=== PATIENT | male | born 1930 | race Caucasian/White ===

== ENCOUNTER 2017-07-11 10:37 | Emergency (ER) | payer MEDICARE, OTHER ==
[2016-10-18 13:08] VITALS: BMI 27.7
[~2017-07-11 10:37] MED LIST: ASCORBIC ACID500 MG PO; BAYER CHEWABLE81 MG PO; CARDIZEM LA360 MG PO; CITRACAL + D E1 EACH; CLARITIN 10 MG10 MG PO; CO Q-1030 MG PO; CORDARONE200 MG PO; FEXOFENADINE HC60 MG PO; FLOMAX0.4 MG PO; LASIX20 MG PO; METOPROLOL TART25 MG PO; PLAVIX75 MG PO; PRILOSEC20 MG PO; SINEMET 25-1001 EACH PO; UROCIT-K10 MEQ; VYTORIN 10-20 M1 TAB PO; ZOCOR20 MG PO; ZYLOPRIM100 MG PO
[2017-07-11 11:39] LABS: BASOPHILS 0.2 % (0-2); EOSINOPHILS 0.7 % (0-7); HEMATOCRIT 38.1 % (42.0-54.0); HEMOGLOBIN 13.2 g/dL (13.5-17.5); IMMATURE GRANULOCYTES 0.4 % (0-5); LYMPHOCYTES 19.3 % (15-50); MCH 32.2 pg (26.0-34.0); MCHC 34.6 g/dL (31.0-37.0); MCV 92.9 fL (80.0-100.0); MEAN PLATELET VOLUME 8.8 fL (7.4-10.4); MONOCYTES 8.2 % (2-11); NEUTROPHILS 71.2 % (40-80); PLATELET COUNT 210 10x3/uL (130-400); RDW 14.2 % (11.5-14.5); WBC 8.3 10x3/uL (4.8-10.8)
[2017-07-11 11:54] LABS: ALBUMIN 3.1 g/dL (3.4-5.0); ANION GAP 11.6 mmol/L (8-16); BILIRUBIN - TOTAL 0.55 mg/dL (0.2-1.3); CALCIUM 8.8 mg/dL (8.5-10.1); CARBON DIOXIDE 27.6 mmol/L (21.0-32.0); CREATININE - SERUM 1.7 mg/dL (0.6-1.3); POTASSIUM - SERUM 4.2 mmol/L (3.5-5.1)
[2017-07-11 13:19] LABS: UDS - AMPHET POSITIVE QUAL (NEGATIVE); UDS - BARB NEGATIVE QUAL (NEGATIVE); UDS - BENZO NEGATIVE QUAL (NEGATIVE); UDS - COCAINE NEGATIVE QUAL (NEGATIVE); UDS - METH NEGATIVE QUAL (NEGATIVE); UDS - OPIATE NEGATIVE QUAL (NEGATIVE); UDS - PCP NEGATIVE QUAL (NEGATIVE); UDS - THC NEGATIVE QUAL (NEGATIVE)
[2017-07-11 13:31] LABS: APPEARANCE CLOUDY (CLEAR); BILIRUBIN NEGATIVE (NEGATIVE); COLOR YELLOW (YELLOW); GLUCOSE NEGATIVE (NEGATIVE); KETONE NEGATIVE (NEGATIVE); LEUKOCYTE ESTERASE 2+ (NEGATIVE); NITRITE NEGATIVE (NEGATIVE); PROTEIN TRACE mg/dL (NEGATIVE); UROBILINOGEN NORMAL (NORMAL)
[2017-07-11 13:32] LABS: BACTERIA MODERATE /hpf (NONE SEEN); EPITHELIAL CELLS 0-5 /hpf (0-5); MUCUS <1+ /lpf (NONE SEEN); RED CELLS - URINE 0-5 /hpf (0-5)
== END 2017-07-11 15:05 | disposition home or self-care (01) ==
LOC: D.ER 10:37
PROVIDERS: Emergency Medicine
DX: R56.9 Unspecified convulsions (principal); N39.0 Urinary tract infection, site not specified; I10 Essential (primary) hypertension

== ENCOUNTER → 2017-08-02 12:51 | Outpatient (CLI) | payer MEDICARE, OTHER ==
[2016-10-18 13:08] VITALS: BMI 27.7
== END | disposition home or self-care (01) ==
LOC: D.CN 12:51
DX: R55 Syncope and collapse (principal); G20 Parkinson's disease

== ENCOUNTER 2018-08-29 11:22 | Emergency (ER) | payer MEDICARE, OTHER ==
[~2018-08-29] VITALS: Ht 170.2 cm; Wt 84.1 kg
[2018-08-29 11:24] VITALS: Ht 170.2 cm; Wt 84.1 kg
[2018-08-29] MEDS ORDERED: TYLENOL W/CODEI1 TAB PO (15:06)
[2018-08-29 15:15] VITALS: BP 158/81
== END 2018-08-29 15:16 | disposition home or self-care (01) ==
LOC: D.ER 11:22
DX: S80.01XA Contusion of right knee, initial encounter (principal); W18.30XA Fall on same level, unspecified, initial encounter; Y93.89 Activity, other specified; Y92.019 Unspecified place in single-family (private) house as the place of occurrence of the external cause; M25.551 Pain in right hip; G20 Parkinson's disease; I10 Essential (primary) hypertension; J44.9 Chronic obstructive pulmonary disease, unspecified; I25.10 Atherosclerotic heart disease of native coronary artery without angina pectoris; N42.9 Disorder of prostate, unspecified

== ENCOUNTER 2018-11-22 12:45 | Inpatient (IN) | payer MEDICARE, OTHER ==
[~2018-11-22] VITALS: Ht 170.2 cm; Wt 65.7 kg
[~2018-11-22 12:45] MED LIST changes: -SINEMET 25-1001 EACH PO; +Sinemet 25-100 PO; +TYLENOL W/CODEI1 TAB PO
[2018-11-22 13:49] LABS: APPEARANCE CLEAR (CLEAR); BILIRUBIN NEGATIVE (NEGATIVE); COLOR YELLOW (YELLOW); GLUCOSE NEGATIVE (NEGATIVE); KETONE NEGATIVE (NEGATIVE); NITRITE NEGATIVE (NEGATIVE); PROTEIN TRACE mg/dL (NEGATIVE); UROBILINOGEN NORMAL (NORMAL)
[2018-11-22 13:49] LABS: BASOPHILS 0.2 % (0-2); EOSINOPHILS 0.8 % (0-7); HEMATOCRIT 32.5 % (42.0-54.0); HEMOGLOBIN 10.7 g/dL (13.5-17.5); IMMATURE GRANULOCYTES 0.4 % (0-5); LYMPHOCYTES 14.6 % (15-50); MCH 30.7 pg (26.0-34.0); MCHC 32.9 g/dL (31.0-37.0); MCV 93.1 fL (80.0-100.0); MEAN PLATELET VOLUME 8.4 fL (7.4-10.4); MONOCYTES 9.7 % (2-11); NEUTROPHILS 74.3 % (40-80); RBC 3.49 10x6/uL (4.20-6.10); RDW 14.4 % (11.5-14.5); WBC 10.1 10x3/uL (4.8-10.8)
[2018-11-22 13:50] LABS: AMORPHOUS SEDIMENT <1+ /lpf (NONE SEEN); BACTERIA MANY /hpf (NONE SEEN); EPITHELIAL CELLS OCC /hpf (0-5); MUCUS <1+ /lpf (NONE SEEN); WHITE CELLS - URINE 0-5 /hpf (0-5)
[2018-11-22 14:03] LABS: ALBUMIN 2.3 g/dL (3.4-5.0); ANION GAP 13.1 mmol/L (8-16); BILIRUBIN - TOTAL 0.45 mg/dL (0.2-1.3); CALCIUM 8.4 mg/dL (8.5-10.1); CREATININE - SERUM 1.8 mg/dL (0.6-1.3); POTASSIUM - SERUM 5.1 mmol/L (3.5-5.1)
[2018-11-22 14:07] LABS: PLATELET COUNT 310 10x3/uL (130-400)
[2018-11-22 14:12] LABS: THYROID STIMULATING HORMONE 2.21 uIU/mL (0.36-3.74)
--- NOTE | 2018-11-22 15:04 | NUR ---
ROCEPHIN INFUSION STOPPED AT 1500
[2018-11-22 15:18] VITALS: BP 129/84
[2018-11-22 15:44] VITALS: BP 120/75
[2018-11-22 16:48] LABS: % SATURATION 12 % (15-55); IRON 27 ug/dl (35-150); TOTAL IRON BIND CAPACITY 221 ug/dl (260-445); UNSAT IRON BIND CAPACITY 194 ug/dl (150-375)
--- NOTE | 2018-11-22 16:50 | NUR ---
ZITHROMAX INFUSION STOPPED AT 1650
--- NOTE | 2018-11-22 17:28 | NUR ---
RECIEVED PT FROM EER. ANNEMARIE AT BEDSIDE. PT STATES THEY TAKE NORTHERA, WILL ADD TO MEDREC. 100MG TID.
[2018-11-22 17:55] VITALS: BP 147/62
[2018-11-22 18:00] VITALS: BP 161/79; BMI 28.2
--- NOTE | 2018-11-22 18:11 | NUR ---
PT LYING IN BED. CHANGED TO BRIEFS. TELEMETRY APPLIED, FAMILY ASSISTING AT BEDSIDE.
--- NOTE | 2018-11-22 19:10 | NUR ---
ALERT/AWAKE SOME PONCA OF [place] NOTED. IV IN RT FA C/D/I. TELEMETRY SHOWS 73 SR WITH 1ST DEGREE BLOCK. DENIES PAIN. REQUESTED MORE ICE WATER. ORIENTED TO CALL LIGHT FOR ANY NEEDS.
--- NOTE | 2018-11-22 19:30 | NUR ---
REQUESTED BEDPAN FOR BM, BUT WITHOUT ANY RESULTS. NO SKIN BREAKDOWN NOTED ON HIS BUTTOCKS. DOES WEAR ADULT DIAPER.
--- NOTE | 2018-11-23 00:10 | NUR ---
WOKE UP TO GIVE SOLUMEDROL 40MG IV. ALOT OF CRACKLES NOTED BUT CLEARED AFTER HE COUGH.
[2018-11-23 04:50] LABS: BASOPHILS 0 % (0-2); EOSINOPHILS 0 % (0-7); HEMATOCRIT 32.5 % (42.0-54.0); HEMOGLOBIN 10.7 g/dL (13.5-17.5); IMMATURE GRANULOCYTES 0.3 % (0-5); LYMPHOCYTES 5.8 % (15-50); MCH 30.7 pg (26.0-34.0); MCHC 32.9 g/dL (31.0-37.0); MCV 93.1 fL (80.0-100.0); MEAN PLATELET VOLUME 8.6 fL (7.4-10.4); MONOCYTES 1.5 % (2-11); NEUTROPHILS 92.4 % (40-80); PLATELET COUNT 348 10x3/uL (130-400); RBC 3.49 10x6/uL (4.20-6.10); RDW 14.5 % (11.5-14.5); WBC 8.8 10x3/uL (4.8-10.8)
[2018-11-23 04:58] VITALS: BP 140/81
[2018-11-23 05:19] LABS: ALBUMIN 2.3 g/dL (3.4-5.0); ANION GAP 15.5 mmol/L (8-16); BILIRUBIN - TOTAL 0.26 mg/dL (0.2-1.3); CALCIUM 8.6 mg/dL (8.5-10.1); CARBON DIOXIDE 23.8 mmol/L (21.0-32.0); CREATININE - SERUM 1.7 mg/dL (0.6-1.3); MAGNESIUM - SERUM 2.7 mg/dL (1.8-2.4); POTASSIUM - SERUM 5.3 mmol/L (3.5-5.1); PROTEIN - SERUM 6.7 g/dL (6.4-8.2)
--- NOTE | 2018-11-23 05:45 | NUR ---
ADMIN SCHED MED WITH SIPS OF WATER SWALLOWING WITHOUT DIFFICULTY.
--- NOTE | 2018-11-23 08:07 | NUR ---
AT BEDSIDE. REQUESTED HE BE BATHED SOMETIME TODAY. CLEANED PT UP, SMALL BOWEL MOVEMENT AND URNIATION. REPOSITIONED IN BED, CHANGED LINNEN AND PULLUP. PLACED IN YELLOW GOWN. CL IN REACH. ASSISTING WITH FEEDING, ADMINISTERED HOME MEDICAITONS (NOT YET APPROVED HERE, NEEDED FOR [place]) CARBIDOPA-LEVODOPA (25/100, 2 TABS TID) AND NORTHERA(100, 2 CAP TID).
[2018-11-23 08:59] VITALS: BP 177/91
--- NOTE | 2018-11-23 11:09 | NUR ---
CCO NOTE: AAOX4. PT EXTREMELY OUZINKIE. L KNEE SWOLLEN FROM PREVIOUS FALL. NO S/S OF ACUTE DISTRESS. CL IN PLACE.
--- NOTE | 2018-11-23 11:27 | NUR ---
CALLED INTO PTS ROOM BY FAMILY. PT APPEARS TO BE IN ACUTE DISTRESS PSYCHOLOGY. UPSET, STATES HE'S CRAZY AND MAY OR MAY NOT BE IN PAIN. HE SEEMS VERY CONFUSED BUT STATES HES FEELING BETTER NOW. CHECKED PT, NO S/S OF A PHYSIOLOGICAL CAUSE. CALMED PT DOWN THE REST THE WAY. FAMILY STTATES THEY'RE CONCNERNED WITH INCREASED CONFUSION. STATES THAT HE ONLY HAS BOUTS OF CONFUSION INTERMITTENTLY AND THAT HE CAN GO LONG 6 MONTHS WITHOUT INCIDENT BUT WILL THEN HAVE THE ACUTE EPISODES. WILL REPORT TO DR. OVALLE IN REACH. FAMILY AT BEDSIDE. PT SITTING IN RECLINER BY BEDSIDE.
[2018-11-23 13:05] VITALS: BP 153/73
[2018-11-23] MEDS ORDERED: MULTI-DAY VITAM1 TAB PO (14:40)
[2018-11-23] MEDS ORDERED: NORTHERA PO (14:44)
[2018-11-23 16:09] VITALS: BP 132/84
--- NOTE | 2018-11-23 19:10 | NUR ---
ALERT/AWAKE WEARING BIPAP MASK. DENIES ANY NEEDS OR DISCOMFORTS. IV IN R FA WITH NS INFUSING AT 75ML/HR. POINTED TO CALL LIGHT AND STATED "YES" WHEN I QUESTION IF HE KNEW HOW TO USE IT. REQUESTED URINAL TO VOID.
[2018-11-23 19:45] VITALS: BP 142/68
--- NOTE | 2018-11-23 21:42 | NUR ---
ADMIN SCHED MEDS WITH SIPS OF WATER SWALLOWING WITHOUT DIFFICULTY. EMPTIED URINAL. NO OTHER NEEDS VOICED. HAS CALL LIGHT IN REACH.
[2018-11-23 23:41] VITALS: BP 151/76
--- NOTE | 2018-11-24 00:42 | NUR ---
REQUESTED HIS BIPAP MASK OFF AND TOOK A FEW SIPS OF WATER. NO OTHER NEEDS VOICED.
[2018-11-24 03:49] VITALS: BP 174/95
[2018-11-24 05:38] LABS: BASOPHILS 0 % (0-2); EOSINOPHILS 0 % (0-7); HEMATOCRIT 30.6 % (42.0-54.0); HEMOGLOBIN 10.5 g/dL (13.5-17.5); IMMATURE GRANULOCYTES 0.3 % (0-5); LYMPHOCYTES 2.4 % (15-50); MCH 31.5 pg (26.0-34.0); MCHC 34.3 g/dL (31.0-37.0); MCV 91.9 fL (80.0-100.0); MEAN PLATELET VOLUME 8.6 fL (7.4-10.4); NEUTROPHILS 95.3 % (40-80); PLATELET COUNT 357 10x3/uL (130-400); RBC 3.33 10x6/uL (4.20-6.10); RDW 14.5 % (11.5-14.5)
[2018-11-24 06:00] LABS: ALBUMIN 2.1 g/dL (3.4-5.0); ANION GAP 14.6 mmol/L (8-16); BILIRUBIN - TOTAL 0.2 mg/dL (0.2-1.3); CALCIUM 8.3 mg/dL (8.5-10.1); CARBON DIOXIDE 23.2 mmol/L (21.0-32.0); CREATININE - SERUM 1.7 mg/dL (0.6-1.3); MAGNESIUM - SERUM 2.3 mg/dL (1.8-2.4); POTASSIUM - SERUM 4.8 mmol/L (3.5-5.1); PROTEIN - SERUM 6.4 g/dL (6.4-8.2)
[2018-11-24 06:53] LABS: WBC 17.3 10x3/uL (4.8-10.8)
--- NOTE | 2018-11-24 07:33 | NUR ---
AM ROUNDS- PT RESTING COMFORTABLY IN BED, PT A/O X4, REPS EVEN AND NONLABORED ON RA. RT FA IV INFUSING NS AT 75CC/HR. WHEEZING HEARD IN ALL LOBES. PT DENIES ANY NEEDS AT THIS TIME. CALL LIGHT IN REACH, NO FAMILY AT BEDSIDE,NAD NOTED,W ILL CONTINUE PLAN OF CARE.
[2018-11-24 08:10] VITALS: BP 168/93
--- NOTE | 2018-11-24 08:32 | NUR ---
AM MEDS GIVEN AT THIS TIME. AT BEDSIDE STATES PT TAKES 2TABS OF THE [place] AND IT NEEDS TO BE GIVEN AT 0730,1100,1530. INFOMRED PT'S THAT I WOULD HAVE THAT CHANGED. PT DENIES ANY NEEDS AT THIS TIME. CALL LIGHT IN REACH, BEDSIDE RAILS X2, NAD NOTED,W ILL CONTINUE TO MONITOR.
[2018-11-24 11:45] VITALS: BP 161/86
[2018-11-24 12:20] VITALS: BMI 27.7
--- NOTE | 2018-11-24 13:56 | NUR ---
IVPB ZITRHOMAX HUNG AT THIS TIME. ALSO PROVIDE PT WITH ICE CREAM, PT DENIES ANY OTHER NEEDS AT THIS TIME. CALL LIGHT IN REACH, AT BEDSIDE, PHOEBE YENNY, WILL CONTINUE TO MONITOR.
--- NOTE | 2018-11-24 15:40 | NUR ---
Rehab NOte- Acute Inpatient prescreen order received. The patient is a good inpatient rehab candidate when medically stable and ready for discharge from the acute hosptial. He is currently still having a medical work up. Will follow at this time and plan to admit to [facility] Acute Inpatient Rehab if he is in agreeance prior to being discharged home. Thank you for this referral! Mile Dorado RN Clincial Liaison, [facility] Rehab
[2018-11-24 16:46] VITALS: BP 165/88
--- NOTE | 2018-11-24 17:30 | NUR ---
INFORMED PT THAT WE NEED A URINE SAMPLE. CUP AND URINAL TAKEN TO ROOM. PT AND AT BEDSIDE BOTH VERBALIZED UNDERSTANDING, IVPB ROCEPHIN HUNG AT THIS TIME. PT DENIES ANY NEEDS AT THIS TIME. AT BEDSIDE, CALL LIGHT IN REACH.
--- NOTE | 2018-11-24 19:45 | NUR ---
PT RESTING IN BED WITH EYES OPEN. ALERT AND ORIENTED X 3. DENIES ACUTE DISCOMFORT AT THIS TIME. NO NEEDS VOICED. PT IS KENAITZE. IV TO RFA NOTED TO BE INFILTRATED. IV DC'D WITH CATH INTACT. BANDAID APPLIED TO SITE. I ATTEMPTED TO RESITE IV X 2 WITHOUT SUCCESS. IV RESITED BY JOHNATHAN BEYER RN IN LFA WITH 22 G IV USING STERILE TECHNIQUE. SITE SECURED WITH TAPE AND OPSITE. IV RESTARTED. TELEMETRY UNIT IS ON AND INTACT. FAMILY MEMBER IS AT BEDSIDE. SR'S ARE UP X 2 IN BED. CALL LIGHT AND BEDSIDE TABLE ARE WITHIN EASY REACH.
[2018-11-24 20:00] VITALS: BP 164/87
--- NOTE | 2018-11-24 23:45 | NUR ---
PT IS RESTING QUIETLY IN BED WITH EYES CLOSED. RESPS ARE EVEN AND UNLABORED. NO ACUTE DISTRESS NOTED.
[2018-11-24 23:50] LABS: APPEARANCE CLEAR (CLEAR); BILIRUBIN NEGATIVE (NEGATIVE); COLOR YELLOW (YELLOW); GLUCOSE NEGATIVE (NEGATIVE); KETONE NEGATIVE (NEGATIVE); NITRITE NEGATIVE (NEGATIVE); PROTEIN TRACE mg/dL (NEGATIVE); UROBILINOGEN NORMAL (NORMAL)
[2018-11-24 23:51] LABS: BACTERIA MODERATE /hpf (NONE SEEN); EPITHELIAL CELLS 0-5 /hpf (0-5); GRANULAR CAST 0-5 /lpf (NONE SEEN); RED CELLS - URINE 0-5 /hpf (0-5); WHITE CELLS - URINE 0-5 /hpf (0-5)
[2018-11-25] VITALS: BP 152/84
--- NOTE | 2018-11-25 01:19 | NUR ---
RESTING IN BED WITH EYES CLOSED.
--- NOTE | 2018-11-25 03:19 | NUR ---
LYING IN BED, RESPIRATIONS EVEN AND UNLABORED. CALL LIGHT IN REACH, WILL CONTINUE WITH PLAN OF CARE.
[2018-11-25 04:00] VITALS: BP 167/87
--- NOTE | 2018-11-25 05:40 | NUR ---
PT RESTING IN BED WITH EYES OPEN. USED URINAL. 400CC DARK YELLOW URINE NOTED. NO FURTHER NEEDS VOICED.
--- NOTE | 2018-11-25 05:41 | NUR ---
PT REFUSED TO STAND FOR DAILY WEIGHT. HE STATES IT TAKES TO MUCH EFFORT TO TRY, AND HE WOULD NOT BE ABLE TO STAND STILL IT.
[2018-11-25 06:44] LABS: BASOPHILS 0.1 % (0-2); EOSINOPHILS 0 % (0-7); HEMATOCRIT 30.5 % (42.0-54.0); HEMOGLOBIN 9.9 g/dL (13.5-17.5); IMMATURE GRANULOCYTES 0.6 % (0-5); LYMPHOCYTES 2.4 % (15-50); MCH 30.2 pg (26.0-34.0); MCHC 32.5 g/dL (31.0-37.0); MEAN PLATELET VOLUME 8.6 fL (7.4-10.4); MONOCYTES 2.1 % (2-11); NEUTROPHILS 94.8 % (40-80); PLATELET COUNT 353 10x3/uL (130-400); RBC 3.28 10x6/uL (4.20-6.10); RDW 14.8 % (11.5-14.5)
--- NOTE | 2018-11-25 07:14 | NUR ---
SINEMET GIVEN AT THIS TIME. PT RESTING COMFORTABLY IN BED, RESP EVEN AND NONLABORED ON RA, WHEEZING HEARD ON ALL LOBES. LT FA IV INFUSING NS AT 75CC/HR. PT DENIES ANY NEEDS AT THIS TIME. CALL LIGHT IN REACH, BEDSIDE RAILS X2, NAD NOTED, WILL CONTINUE PLAN OF CARE.
[2018-11-25 07:34] LABS: ALBUMIN 1.9 g/dL (3.4-5.0); ANION GAP 13.9 mmol/L (8-16); BILIRUBIN - TOTAL 0.32 mg/dL (0.2-1.3); CALCIUM 7.5 mg/dL (8.5-10.1); CARBON DIOXIDE 22.5 mmol/L (21.0-32.0); CREATININE - SERUM 1.5 mg/dL (0.6-1.3); POTASSIUM - SERUM 4.4 mmol/L (3.5-5.1); PROTEIN - SERUM 5.8 g/dL (6.4-8.2)
--- NOTE | 2018-11-25 08:31 | NUR ---
PT TO XRAY AT THIS TIME.
[2018-11-25 08:45] VITALS: BP 154/78
[2018-11-25 09:17] LABS: FOLATE (FOLIC ACID) - SERUM >20.0 ng/mL (>3.0)
--- NOTE | 2018-11-25 09:31 | NUR ---
PT TRANSFERED BACK TO ROOM, AM MEDS GIVEN AT THIS TIME. PT DENIES ANY NEEDS AT THIS TIME. CALL LIGHT IN REACH, FAMILY AT BEDSIDE, NAD NOTED,W ILL CONTINUE TO MONITOR.
--- NOTE | 2018-11-25 09:40 | MORECARE ---
CASE MANAGEMENT DISCHARGE SUMMARY PATIENT: JUNIOR Maryan HANKS UNIT: [id number] ADM DATE: 11/22/18 AGE: 87 : 31 SEX: M ROOM/BED: D.2103 AUTHOR: ROSALINO AVILA PHYSICIAN: REFERRING PHYSICIAN: DANGELO MEADOWS MD DATE OF SERVICE: 11/25/18 Discharge Plan Patient Name: JUNIOR LATONYA [facility] [facility] 1930 Planned Disposition: Anticipated Discharge Date: Discharge Date: Expected LOS: Initial Reviewer: [email or web address] Initial Review Date: 11/22/2018 Generated: 11/25/18 10:40 am Comments DCP- Discharge Planning Updated by [id number]: April Mullins on 11/25/18 8:[address] Patient Name: JUNIOR Maryan HANKS Admission Status: ER Accout number: [id number] Admission Date: 11-22-2018 : 1930 Admission Diagnosis: Attending: DANGELO MEADOWS Current LOS: 3 Anticipated DC Date: Planned Disposition: Primary Insurance: MEDICARE A & B Discharge Planning Comments: CM FAXED AND CALLED [facility] IN PT REHAB TODAY. WAITING ON DETERMINATION. PATIENT WOULD LIKE TO VISIT WITH PATIENT'S DOCTOR TODAY. Harbormaster: April Mullins External Providers [facility] Next Contact Date: Service Request Date: Service Type: Resolution: Reviewer: Comments: Patient Name: JUNIOR LATONYA Page [phone] at 0940 All edits/amendments must be made on the electronic document DICTATION DATE: 11/25/18938 RESIDENTIAL ROOFER HELPER: DM 11/25/18938 RPT#: [id number] DC DATE: STATUS: ADM IN [facility] [address] [place] [address] END OF REPORT
[2018-11-25 12:13] VITALS: BP 146/60
--- NOTE | 2018-11-25 13:02 | NUR ---
PT RESTING COMFORTABLY IN BED, NO CHANGES FROM PREVIOUS ASSESSMENT. PT DENIES ANT NEEDS AT THIS TIME CALL LIGHT IN REACH, AT BEDSIDE, NAD NOTED, WILL CONTINUE TO MONITOR.
[2018-11-25 16:12] VITALS: BP 149/77
--- NOTE | 2018-11-25 19:15 | NUR ---
RESUME CARE. PT LAYING IN BED A&O NO C/O PAIN OR DISTRESS AT THIS TIME DAUGHTER @ BEDSIDE CALL LIGHT IN REACH WILL CONT TO MONITOR
[2018-11-25 20:00] VITALS: BP 167/88
[2018-11-26] VITALS: BP 165/88
[2018-11-26 04:00] VITALS: BP 160/78
--- NOTE | 2018-11-26 05:43 | NUR ---
I CONCUR WITH MARKETING SERVICES MANAGER ASSESSMENT.
[2018-11-26 06:05] LABS: BASOPHILS 0.1 % (0-2); EOSINOPHILS 0.1 % (0-7); HEMATOCRIT 29.7 % (42.0-54.0); HEMOGLOBIN 9.8 g/dL (13.5-17.5); MCH 30.2 pg (26.0-34.0); MCV 91.4 fL (80.0-100.0); MEAN PLATELET VOLUME 8.7 fL (7.4-10.4); MONOCYTES 7.3 % (2-11); NEUTROPHILS 85.5 % (40-80); PLATELET COUNT 344 10x3/uL (130-400); RBC 3.25 10x6/uL (4.20-6.10); RDW 14.8 % (11.5-14.5); WBC 18.4 10x3/uL (4.8-10.8)
[2018-11-26 06:17] LABS: ANION GAP 12.7 mmol/L (8-16); BILIRUBIN - TOTAL 0.31 mg/dL (0.2-1.3); CALCIUM 8.1 mg/dL (8.5-10.1); CARBON DIOXIDE 23.8 mmol/L (21.0-32.0); CREATININE - SERUM 1.6 mg/dL (0.6-1.3); MAGNESIUM - SERUM 2.2 mg/dL (1.8-2.4); POTASSIUM - SERUM 4.5 mmol/L (3.5-5.1); PROTEIN - SERUM 5.6 g/dL (6.4-8.2)
--- NOTE | 2018-11-26 08:00 | NUR ---
RECIEVED BEDSIDE REPORT.AM ROUNDS COMPLETED. PT VSS, AA0 X3, DYSPNEA ON EXERTION. ASSIST PT TO USE THE BATHROOM THIS AM. PT HAS BM THIS AM. SPOUSE @BEDSIDE. PT DENIES NEEDS FOR PAIN AT TIME. WILL CONTINUE POC. CL IN REACH BED IN LOW. WILL CTM.
[2018-11-26 08:15] VITALS: BP 156/81
[2018-11-26 11:14] VITALS: BP 144/74
--- NOTE | 2018-11-26 11:51 | MORECARE ---
CASE MANAGEMENT DISCHARGE SUMMARY PATIENT: JUNIOR Maryan HANKS UNIT: [id number] ADM DATE: 11/22/18 AGE: 87 : 31 SEX: M ROOM/BED: D.2103 AUTHOR: ROSALINO AVILA PHYSICIAN: REFERRING PHYSICIAN: DANGELO MEADOWS MD DATE OF SERVICE: 11/26/18 Discharge Plan Patient Name: JUNIOR LATONYA [facility] [facility] 1930 Planned Disposition: Inpatient Rehab Anticipated Discharge Date: 11/27/18 Discharge Date: Expected LOS: 5 Initial Reviewer: [email or web address] Initial Review Date: 11/22/2018 Generated: 11/26/18 12:51 pm Comments DCP- Discharge Planning Updated by [email or web address]: April Mullins on 11/25/18 8:[address] Patient Name: JUNIOR Maryan HANKS Admission Status: ER Accout number: [id number] Admission Date: 11-22-2018 : 1930 Admission Diagnosis: Attending: DANGELO MEADOWS Current LOS: 3 Anticipated DC Date: Planned Disposition: Primary Insurance: MEDICARE A & B Discharge Planning Comments: CM FAXED AND CALLED [facility] IN PT REHAB TODAY. WAITING ON DETERMINATION. PATIENT WOULD LIKE TO VISIT WITH PATIENT'S DOCTOR TODAY. Counter Stitcher: April Polanco DP export: 11/25/18 8:40 a Patient Name: JUNIOR LATONYA Page [phone] at 1151 All edits/amendments must be made on the electronic document DICTATION DATE: 11/26/18 1151 BURRER HAND: JOSEPH 11/26/18 1151 RPT#: [id number] DC DATE: STATUS: ADM IN [facility] [address] [place] [address] END OF REPORT
--- NOTE | 2018-11-26 12:00 | MORECARE ---
CASE MANAGEMENT DISCHARGE SUMMARY PATIENT: JUNIOR Maryan HANKS UNIT: [id number] ADM DATE: 11/22/18 AGE: 87 : 31 SEX: M ROOM/BED: D.2103 AUTHOR: AUSTINDOC PHYSICIAN: REFERRING PHYSICIAN: DANGELO MEADOWS MD DATE OF SERVICE: 11/26/18 Discharge Plan Patient Name: JUNIOR LATONYA Facility: [facility]:[place] : 1930 Planned Disposition: Inpatient Rehab Anticipated Discharge Date: 11/27/18 Discharge Date: Expected LOS: 5 Initial Reviewer: [email or web address] Initial Review Date: 11/24/2018 Generated: 11/26/18 12:59 pm Comments DCP- Discharge Planning Updated by [email or web address]: pAril Mullins on 11/25/18 8:[address] Patient Name: JUNIOR Maryan HANKS Admission Status: ER Accout number: [id number] Admission Date: 11-22-2018 : 1930 Admission Diagnosis: Attending: DANGELO MEADOWS Current LOS: 3 Anticipated DC Date: Planned Disposition: Primary Insurance: MEDICARE A & B Discharge Planning Comments: CM FAXED AND CALLED [facility] IN PT REHAB TODAY. WAITING ON DETERMINATION. PATIENT WOULD LIKE TO VISIT WITH PATIENT'S DOCTOR TODAY. Relationship Assoc: April Mullins DCPIA - Discharge Planning Initial Assessment Updated by [email or web address]: Tyree Sinclair on 11/26/18 11:56 am * Is the patient Alert and Oriented? Yes * How many steps to enter\exit or inside your home? RAMP * PCP DR. LUI * Pharmacy [facility] * Preadmission Environment Home with Family * ADLs Independent * Equipment Bedside Commode CPAP Hospital Bed Walker * Other Equipment ELECTRIC WHEELCHAIR HAS BEEN ORDERED PREVIOUS TO HOSPITAL STAY. [facility] - MEDICAL EQUIPMENT PROVIDER PREFERENCE * List name and contact numbers for known caregivers / representatives who currently or will assist patient after discharge: JOSUE HANKS, SPOUSE, * Verbal permission to speak to the caregivers and representatives has been obtained from the patient. Yes * Community resources currently utilized Private Duty Care * Please name any agencies selected above. [facility], PRIVATE AIDE SERVICES, APPROXIMATELY 29 HOURS PER WEEK * Additional services required to return to the preadmission environment? Yes * Can the patient safely return to the preadmission environment? Yes * Has this patient been hospitalized within the prior 30 days at any hospital? No Coverage Notice Reviewer: [email or web address] Socorro Sinclair Notice Issued Date-Time: 11/24/2018 16:35 Notice Type: IM Discharge Notice Notice Delivered To: Patient Relationship to Patient: Fresh Foods Clerk Name: Delivery Method: HAND - Hand Delivered Marialuisa Days: Prior Verbal Notification: Recipient Understood Notice: Yes Recipient Signature: Yes Med Rec Note Co-signed by Attending: Coverage Notice Comment: Last DP export: 11/26/18 10:51 a Patient Name: JUNIOR LATONYA Page [phone] at 1200 All edits/amendments must be made on the electronic document DICTATION DATE: 11/26/181158 METEOROLOGICAL TECHNICIAN: JOSEPH 11/26/18 1159 RPT#: [id number] DC DATE: STATUS: ADM IN [facility] [address] [place] [address] END OF REPORT
--- NOTE | 2018-11-26 12:06 | MORECARE ---
CASE MANAGEMENT DISCHARGE SUMMARY PATIENT: JUNIOR Maryan HANKS UNIT: [id number] ADM DATE: 11/22/18 AGE: 87 : 31 SEX: M ROOM/BED: D.2103 AUTHOR: AUSTINDOC PHYSICIAN: REFERRING PHYSICIAN: DANGELO MEADOWS MD DATE OF SERVICE: 11/26/18 Discharge Plan Patient Name: JUNIOR LATONYA Facility: [facility]:[place] : 1930 Planned Disposition: Inpatient Rehab Anticipated Discharge Date: 11/27/18 Discharge Date: Expected LOS: 5 Initial Reviewer: [email or web address] Initial Review Date: 11/24/2018 Generated: 11/26/18 1:06 pm Comments DCP- Discharge Planning Updated by [email or web address]: Tyree Sinclair on 11/26/18 11:[address] Patient Name: JUNIOR Maryan HANKS Encounter No: [id number] : 1930 Primary Insurance: MEDICARE A & B Anticipated DC Date: 11-27-2018 Planned Disposition: Inpatient Rehab External Planned Provider: [facility] DCP follow-up note: LATE ENTRY FROM 11-24-18 AT APPROXIMATELY 1630 HOURS: CM RECEIVED ORDER FOR INPATIENT REHAB PRESCREENING. CM MET WITH PT AND SPOUSE IN ROOM TO DISCUSS DISCHARGE PLANNING AND NEEDS. JUNIOR Maryan HANKS provided verbal consent to discuss current and ongoing needs with/in the presence of: SPOUSE, JOSUE GOLDMAN. PT REPORTS LIVING AT HOME INDEPENDENTLY WITH SPOUSE. PT HAS BEDSIDE COMMODE, CPAP, HOSPITAL BED AND WALKER FROM [facility]. PT HAS NEW ELECTRIC WHEELCHAIR ORDERED AND IS WAITING DELIVERY. PT HAS PERSONAL CARE 5 HOURS THREE DAYS PER WEEK AND 7 HOURS 2 DAYS PER WEEK FROM [facility]. CM DISCUSSED AVAILABILITY OF HOME HEALTH, REHAB SERVICES AND MEDICAL EQUIPMENT. PT AND SPOUSE BOTH WANT PT TO HAVE REHAB AT [facility]. PT'S SPOUSE TO ELECTRONIC SEMICONDUCTOR PROCESSOR FOR DISCHARGE HOME. IMPORTANT MESSAGE FROM MEDICARE PROVIDED AND EXPLAINED. ON 11-26-18, CM CALLED [facility], SPOKE TO AKSHAT AT [phone], WHO ADVISED THEY WILL ACCEPT FOR REHAB AT DISCHARGE. ELIDA MONK NOTIFIED, ADVISED CM THAT GI NEEDS TO SEE PT. CM NOTIFIED AKSHAT AT [facility] AND PT IN ROOM. CM FAXED UPDATE AND TODAYS MAR TO [facility] AT [phone]. [facility] WILL ACCEPT FOR INPATIENT REHAB AT DISCHARGE. NURSE REPORT TO BE CALLED TO [facility] AT [phone], FAX DISCHARGE INFORMATION TO [facility] WITH CURRENT MAR AT [phone]. [facility] TO ARRANGE VAN TRANSPORTATION. Tyree Sinclair, CASE MANAGEMENT DCP- Discharge Planning Updated by [id number]: April Mullins on 11/25/18 8:[address] Patient Name: JUNIOR Maryan HANKS Admission Status: ER Accout number: [id number] Admission Date: 11-22-2018 : 1930 Admission Diagnosis: Attending: DANGELO MEADOWS Current LOS: 3 Anticipated DC Date: Planned Disposition: Primary Insurance: MEDICARE A & B Discharge Planning Comments: CM FAXED AND CALLED [facility] IN PT REHAB TODAY. WAITING ON DETERMINATION. PATIENT WOULD LIKE TO VISIT WITH PATIENT'S DOCTOR TODAY. Math Professor: April Mullins DCPIA - Discharge Planning Initial Assessment Updated by [id number]: Tyree Sinclair on 11/26/18 11:56 am * Is the patient Alert and Oriented? Yes * How many steps to enter\exit or inside your home? RAMP * PCP DR. LUI * Pharmacy [facility] * Preadmission Environment Home with Family * ADLs Independent * Equipment Bedside Commode CPAP Hospital Bed Walker * Other Equipment ELECTRIC WHEELCHAIR HAS BEEN ORDERED PREVIOUS TO HOSPITAL STAY. [facility] - MEDICAL EQUIPMENT PROVIDER PREFERENCE * List name and contact numbers for known caregivers / representatives who currently or will assist patient after discharge: JOSUE HANKS, SPOUSE, * Verbal permission to speak to the caregivers and representatives has been obtained from the patient. Yes * Community resources currently utilized Private Duty Care * Please name any agencies selected above. [facility], PRIVATE AIDE SERVICES, APPROXIMATELY 29 HOURS PER WEEK * Additional services required to return to the preadmission environment? Yes * Can the patient safely return to the preadmission environment? Yes * Has this patient been hospitalized within the prior 30 days at any hospital? No Coverage Notice Reviewer: [id number] Socorro Sinclair Notice Issued Date-Time: 11/24/2018 16:35 Notice Type: IM Discharge Notice Notice Delivered To: Patient Relationship to Patient: Chassis Driver Name: Delivery Method: HAND - Hand Delivered Marialuisa Days: Prior Verbal Notification: Recipient Understood Notice: Yes Recipient Signature: Yes Med Rec Note Co-signed by Attending: Coverage Notice Comment: Last DP export: 11/26/18 10:59 a Patient Name: JUNIOR LATONYA Page 10715 at 1206 All edits/amendments must be made on the electronic document DICTATION DATE: 11/26/18 120 STATISTICAL MODELER: JOSEPH 11/26/18 1206 RPT#: [id number] DC DATE: STATUS: ADM IN [facility] [address] [place] [address] END OF REPORT
[2018-11-26 15:05] VITALS: BP 124/60; BP 138/68
--- NOTE | 2018-11-26 18:45 | NUR ---
PT C/O A HEADACHE OF 05/20. ADMINISTERED PRN TYLENOL. WILL CTM. FAMILY AT BEDSIDE. CL IN REACH, BED IN LOW.
[2018-11-26 20:00] VITALS: BP 136/70
--- NOTE | 2018-11-26 21:04 | NUR ---
TO PT ROOM VIA TRANSITION ADVISOR. MONITOR SHOWS MULTIPLE RUNS OF V TACH, PT IS ASYMPTOMATIC. EKG OBTAINED. SCHEDULED AMIODARONE GIVEN. SOFIA NOTIFIED, CARDIAC CONSULT ORDERED. PLACED PT ON 2L OF 02 NC. BP 136/70, HR 133. TAUTH NOTIFIED, ONE TIME DOSE OF 200 MG AMIODORANE SCEDULED TO BE GIVEN NOW DONE PER MD ORDER. WILL CONTINUE TO MONITOR AND FOLLOW UP WITH EKG IN 1 HOUR. SR UP X2, CL IN REACH.
[2018-11-27 00:14] VITALS: BP 121/60
--- NOTE | 2018-11-27 00:46 | NUR ---
PT RESTING QUIETLY IN BED WITH EYES CLOSED. NO S/S OF DISTRESS, RR EVEN AND UL. 02 ON 2L VIA NC. CONDITIONING YARD SUPERVISOR READS NORMAL SINUS. WCTM. SR UP X2, CL IN REACH, BED IN LOW POSITION.
[2018-11-27 04:00] VITALS: BP 124/59
--- NOTE | 2018-11-27 05:06 | NUR ---
PT RESTED COMFORTABLY THROUGHOUT THE NIGHT WITH STABLE VS. PT IN SR AT 58 VIA DISH WASHER. NO S/S OF DISTRESS, RR EVEN AND UL. ON 2L OF VIA NC. CLEAN PT AND CHANGED LINENS. DENIES NEEDS AT THIS TIME. SR UP X2, CL IN REACH, BED IN LOW POSITION.
[2018-11-27 06:31] LABS: ANION GAP 11.8 mmol/L (8-16); BILIRUBIN - TOTAL 0.43 mg/dL (0.2-1.3); CALCIUM 8.1 mg/dL (8.5-10.1); CARBON DIOXIDE 28.1 mmol/L (21.0-32.0); CREATININE - SERUM 1.7 mg/dL (0.6-1.3); POTASSIUM - SERUM 3.9 mmol/L (3.5-5.1); PROTEIN - SERUM 5.6 g/dL (6.4-8.2)
[2018-11-27 07:11] LABS: BASOPHILS 0.2 % (0-2); EOSINOPHILS 1.2 % (0-7); HEMOGLOBIN 11.1 g/dL (13.5-17.5); IMMATURE GRANULOCYTES 1.8 % (0-5); MCH 29.8 pg (26.0-34.0); MCHC 32.6 g/dL (31.0-37.0); MCV 91.2 fL (80.0-100.0); MEAN PLATELET VOLUME 9.2 fL (7.4-10.4); MONOCYTES 5.8 % (2-11); PLATELET COUNT 332 10x3/uL (130-400); RBC 3.73 10x6/uL (4.20-6.10); WBC 13.8 10x3/uL (4.8-10.8)
--- NOTE | 2018-11-27 07:37 | MORECARE ---
CASE MANAGEMENT DISCHARGE SUMMARY PATIENT: JUNIOR Maryan HANKS UNIT: [id number] ADM DATE: 11/22/18 AGE: 87 : 31 SEX: M ROOM/BED: D.2103 AUTHOR: AUSTINDOC PHYSICIAN: REFERRING PHYSICIAN: DANGELO MEADOWS MD DATE OF SERVICE: 11/27/18 Discharge Plan Patient Name: JUNIOR LATONYA Facility: [facility]:[place] : 1930 Planned Disposition: Inpatient Rehab Anticipated Discharge Date: 11/28/18 Discharge Date: Expected LOS: 6 Initial Reviewer: [id number] Initial Review Date: 11/24/2018 Generated: 11/27/18 8:37 am Comments DCP- Discharge Planning Updated by [id number]: Tyree Sinclair on 11/27/18 6:[address] Patient Name: JUNIOR Maryan HANKS Encounter No: [id number] : 1930 Primary Insurance: MEDICARE A & B Anticipated DC Date: 11-28-2018 Planned Disposition: Inpatient Rehab External [facility] DCP follow-up note: CM FAXED UPDATE TO [facility] AT [phone]. [facility] FOR [facility]PATIENT REHAB AT DISCHARGE. NURSE REPORT TO BE CALLED TO [facility] AT [phone], FAX DISCHARGE INFORMATION TO [facility] WITH CURRENT MAR AT [phone]. [facility] TO ARRANGE VAN TRANSPORTATION. MEGHNA Urban DCP- Discharge Planning Updated by [id number]: Tyree Sinclair on 11/26/18 11:[address] Patient Name: JUNIOR Maryan HANKS Encounter No: [id number] : 1930 Primary Insurance: MEDICARE A & B Anticipated DC Date: 11-27-2018 Planned Disposition: Inpatient Rehab External Planned Provider: [facility] DCP follow-up note: LATE ENTRY FROM 11-24-18 AT APPROXIMATELY 1630 HOURS: CM RECEIVED ORDER FOR INPATIENT REHAB PRESCREENING. CM MET WITH PT AND SPOUSE IN ROOM TO DISCUSS DISCHARGE PLANNING AND NEEDS. JUNIOR Maryan HANKS provided verbal consent to discuss current and ongoing needs with/in the presence of: SPOUSE, JOSUE GOLDMAN. PT REPORTS LIVING AT HOME INDEPENDENTLY WITH SPOUSE. PT HAS BEDSIDE COMMODE, CPAP, HOSPITAL BED AND WALKER FROM [facility]. PT HAS NEW ELECTRIC WHEELCHAIR ORDERED AND IS WAITING DELIVERY. PT HAS PERSONAL CARE 5 HOURS THREE DAYS PER WEEK AND 7 HOURS 2 DAYS PER WEEK FROM [facility]. CM DISCUSSED AVAILABILITY OF HOME HEALTH, REHAB SERVICES AND MEDICAL EQUIPMENT. PT AND SPOUSE BOTH WANT PT TO HAVE REHAB AT [facility]. PT'S SPOUSE TO LIGHT CLEANER FOR DISCHARGE HOME. IMPORTANT MESSAGE FROM MEDICARE PROVIDED AND EXPLAINED. ON 11-26-18, CM CALLED [facility] INPATIENT REHAB, SPOKE TO AKSHAT AT [phone], WHO ADVISED THEY WILL ACCEPT FOR REHAB AT DISCHARGE. ELIDA MONK NOTIFIED, ADVISED CM THAT GI NEEDS TO SEE PT. CM NOTIFIED AKSHAT AT [facility] AND PT IN ROOM. CM FAXED UPDATE AND TODAYS MAR TO [facility] AT [phone]. [facility]PAT[facility] WILL ACCEPT FOR INPATIENT REHAB AT DISCHARGE. NURSE REPORT TO BE CALLED TO [facility] AT [phone], FAX DISCHARGE INFORMATION TO [facility] WITH CURRENT MAR AT [phone]. [facility] TO ARRANGE VAN TRANSPORTATION. Tyree Sinclair, CASE MANAGEMENT DCP- Discharge Planning Updated by [id number]: April Mullins on 11/25/18 8:[address] Patient Name: JUNIOR Maryan HANKS Admission Status: ER Accout number: [id number] Admission Date: 11-22-2018 : 1930 Admission Diagnosis: Attending: DANGELO MEADOWS Current LOS: 3 Anticipated DC Date: Planned Disposition: Primary Insurance: MEDICARE A & B Discharge Planning Comments: CM FAXED AND CALLED [facility] IN PT REHAB TODAY. WAITING ON DETERMINATION. PATIENT WOULD LIKE TO VISIT WITH PATIENT'S DOCTOR TODAY. Acute Specialist: April Mullins DCPIA - Discharge Planning Initial Assessment Updated by [email or web address]: Tyree Sinclair on 11/26/18 11:56 am * Is the patient Alert and Oriented? Yes * How many steps to enter\exit or inside your home? RAMP * PCP DR. LUI * Pharmacy [facility] * Preadmission Environment Home with Family * ADLs Independent * Equipment Bedside Commode CPAP Hospital Bed Walker * Other Equipment ELECTRIC WHEELCHAIR HAS BEEN ORDERED PREVIOUS TO HOSPITAL STAY. [facility] - MEDICAL EQUIPMENT PROVIDER PREFERENCE * List name and contact numbers for known caregivers / representatives who currently or will assist patient after discharge: JOSUE HANKS, SPOUSE, * Verbal permission to speak to the caregivers and representatives has been obtained from the patient. Yes * Community resources currently utilized Private Duty Care * Please name any agencies selected above. [facility], PRIVATE AIDE SERVICES, APPROXIMATELY 29 HOURS PER WEEK * Additional services required to return to the preadmission environment? Yes * Can the patient safely return to the preadmission environment? Yes * Has this patient been hospitalized within the prior 30 days at any hospital? No Coverage Notice Reviewer: [id number] Socorro Sinclair Notice Issued Date-Time: 11/24/2018 16:35 Notice Type: IM Discharge Notice Notice Delivered To: Patient Relationship to Patient: Competency Evaluated Nurse Aide Name: Delivery Method: HAND - Hand Delivered Marialuisa Days: Prior Verbal Notification: Recipient Understood Notice: Yes Recipient Signature: Yes Med Rec Note Co-signed by Attending: Coverage Notice Comment: Last DP export: 11/26/18 11:06 a Patient Name: JUNIOR LATONYA Page [id number] at 0737 All edits/amendments must be made on the electronic document DICTATION DATE: 11/27/18735 LINEN TECH: JOSEPH 11/27/18735 RPT#: [id number] DC DATE: STATUS: ADM IN [facility] [address] [place] [address] END OF REPORT
--- NOTE | 2018-11-27 07:40 | NUR ---
ASSESSMENT COMPLETE. SL TO L FA PATENT. CARDIAC EXERCISE SPECIALIST SHOWING SR 66 PER TECH. O2 2L NC IN USE. [id number]. DENIES ANY NEEDS AT THIS TIME.
[2018-11-27 08:03] VITALS: BP 129/60
[2018-11-27 11:30] VITALS: BP 109/59
[2018-11-27 13:03] VITALS: Ht 170.2 cm; Wt 65.7 kg
--- NOTE | 2018-11-27 14:19 | NUR ---
RESTING QUIETLY IN BED. DENIES ANY NEEDS AT THIS TIME.
--- NOTE | 2018-11-27 15:23 | NUR ---
OFF FLOOR TO GI LAB VIA BED.
--- NOTE | 2018-11-27 16:25 | NUR ---
RETURNED TO ROOM FROM GI LAB. VSS. ALERT AND AWAKE. FAMILY AT BEDSIDE.
[2018-11-27 20:00] VITALS: BP 125/61
--- NOTE | 2018-11-27 23:00 | NUR ---
REPORT RECIEVED AND ROUNDING COMPLETE. PT LAYING IN BED AWAKE. PT REFUSED HIS 02 AT THIS TIME. PT STATES NO NEEDS AT THIS TIME. CALL LIGHT WITHIN REACH AND BED IN LOWEST POSITION.
[2018-11-28] VITALS: BP 139/72
[2018-11-28 04:00] VITALS: BP 141/71
--- NOTE | 2018-11-28 04:20 | NUR ---
ORANGE PEEL OPERATOR AT BEDSIDE TO OBTAIN VITALS, CALL LIGHT IN REACH. WILL CONTINUE WITH PLAN OF CARE.
--- NOTE | 2018-11-28 07:38 | NUR ---
REPORT RECEIVED. WILL CONTINUE WITH POC. PT CURRENTLY LYING SEMI FOWLERS. CALL LIGHT W/I REACH. PT IS AAO AND UP WITH ASSIST. AT BEDSIDE. RR EVEN AND UNLABORED ON 2L 02. L.FOR PIV IS SALINE LOCKED. PT DENIES ANY NEEDS AT THIS TIME. WILL CTM.
[2018-11-28 09:21] VITALS: BP 118/59
[2018-11-28] MEDS ORDERED: Nystatin Oral Susp [ PO (09:46)
[2018-11-28] MEDS ORDERED: NYSTATIN ORAL SU5 ML PO (09:47)
[2018-11-28] MEDS ORDERED: LASIX40 MG PO (09:48)
[2018-11-28] MEDS ORDERED: PULMICORT0.5 MG/21 UPD (09:48)
[2018-11-28] MEDS ORDERED: DIFLUCAN200 MG PO (09:53)
[2018-11-28] MEDS ORDERED: FLOMAX0.4 MG PO (09:53)
--- NOTE | 2018-11-28 10:29 | MORECARE ---
CASE MANAGEMENT DISCHARGE SUMMARY PATIENT: JUNIOR Maryan HANKS UNIT: [id number] ADM DATE: 11/22/18 AGE: 87 : 31 SEX: M ROOM/BED: D.2103 AUTHOR: AUSTINDOC PHYSICIAN: REFERRING PHYSICIAN: DANGELO MEADOWS MD DATE OF SERVICE: 11/28/18 Discharge Plan Patient Name: JUNIOR LATONYA Facility: [facility]:[place] : 1930 Planned Disposition: Inpatient Rehab Anticipated Discharge Date: 11/28/18 Discharge Date: Expected LOS: 6 Initial Reviewer: [id number] Initial Review Date: 11/24/2018 Generated: 11/28/18 11:29 am Comments DCP- Discharge Planning Updated by [id number]: Tyree Sinclair on 11/27/18 6:[address] Patient Name: JUNIOR Maryan HANKS Encounter No: [id number] : 1930 Primary Insurance: MEDICARE A & B Anticipated DC Date: 11-28-2018 Planned Disposition: Inpatient Rehab External [facility] DCP follow-up note: CM FAXED UPDATE TO [facility] AT [phone]. [facility] INPATIENT REHAB WILL ACCEPT FOR INPATIENT REHAB AT DISCHARGE. NURSE REPORT TO BE CALLED TO [facility] AT [phone], FAX DISCHARGE INFORMATION TO [facility] WITH CURRENT MAR AT [phone]. [facility] TO ARRANGE VAN TRANSPORTATION. MEGHNA Urban DCP- Discharge Planning Updated by [id number]: Tyree Sinclair on 11/26/18 11:[address] Patient Name: JUNIOR Maryan HANKS Encounter No: [id number] : 1930 Primary Insurance: MEDICARE A & B Anticipated DC Date: 11-27-2018 Planned Disposition: Inpatient Rehab External Planned Provider: [facility] DCP follow-up note: LATE ENTRY FROM 11-24-18 AT APPROXIMATELY 1630 HOURS: CM RECEIVED ORDER FOR INPATIENT REHAB PRESCREENING. CM MET WITH PT AND SPOUSE IN ROOM TO DISCUSS DISCHARGE PLANNING AND NEEDS. JUNIOR Maryan HANKS provided verbal consent to discuss current and ongoing needs with/in the presence of: SPOUSE, JOSUE GOLDMAN. PT REPORTS LIVING AT HOME INDEPENDENTLY WITH SPOUSE. PT HAS BEDSIDE COMMODE, CPAP, HOSPITAL BED AND WALKER FROM [facility]. PT HAS NEW ELECTRIC WHEELCHAIR ORDERED AND IS WAITING DELIVERY. PT HAS PERSONAL CARE 5 HOURS THREE DAYS PER WEEK AND 7 HOURS 2 DAYS PER WEEK FROM [facility]. CM DISCUSSED AVAILABILITY OF HOME HEALTH, REHAB SERVICES AND MEDICAL EQUIPMENT. PT AND SPOUSE BOTH WANT PT TO HAVE REHAB AT [facility]. PT'S SPOUSE TO PODIATRIC SURGEON FOR DISCHARGE HOME. IMPORTANT MESSAGE FROM MEDICARE PROVIDED AND EXPLAINED. ON 11-26-18, CM CALLED [facility] INPATIENT REHAB, SPOKE TO AKSHAT AT [phone], WHO ADVISED THEY WILL ACCEPT FOR REHAB AT DISCHARGE. ELIDA MONK NOTIFIED, ADVISED CM THAT GI NEEDS TO SEE PT. CM NOTIFIED AKSHAT AT [facility] AND PT IN ROOM. CM FAXED UPDATE AND TODAYS MAR TO [facility] AT [phone]. [facility] INPATIENT REHAB WILL ACCEPT FOR INPATIENT REHAB AT DISCHARGE. NURSE REPORT TO BE CALLED TO [facility] AT [phone], FAX DISCHARGE INFORMATION TO [facility] WITH CURRENT MAR AT [phone]. [facility] TO ARRANGE VAN TRANSPORTATION. Tyree Sinclair, CASE MANAGEMENT DCP- Discharge Planning Updated by [id number]: April Mullins on 11/25/18 8:[address] Patient Name: JUNIOR Maryan HANKS Admission Status: ER Accout number: [id number] Admission Date: 11-22-2018 : 1930 Admission Diagnosis: Attending: DANGELO MEADOWS Current LOS: 3 Anticipated DC Date: Planned Disposition: Primary Insurance: MEDICARE A & B Discharge Planning Comments: CM FAXED AND CALLED [facility] IN PT REHAB TODAY. WAITING ON DETERMINATION. PATIENT WOULD LIKE TO VISIT WITH PATIENT'S DOCTOR TODAY. Slot Service Specialist: April Mullins DCPIA - Discharge Planning Initial Assessment Updated by [id number]: Tyree Sinclair on 11/26/18 11:56 am * Is the patient Alert and Oriented? Yes * How many steps to enter\exit or inside your home? RAMP * PCP DR. LUI * Pharmacy [facility] * Preadmission Environment Home with Family * ADLs Independent * Equipment Bedside Commode CPAP Hospital Bed Walker * Other Equipment ELECTRIC WHEELCHAIR HAS BEEN ORDERED PREVIOUS TO HOSPITAL STAY. [facility] - MEDICAL EQUIPMENT PROVIDER PREFERENCE * List name and contact numbers for known caregivers / representatives who currently or will assist patient after discharge: JOSUE HANKS, SPOUSE, * Verbal permission to speak to the caregivers and representatives has been obtained from the patient. Yes * Community resources currently utilized Private Duty Care * Please name any agencies selected above. [facility], PRIVATE AIDE SERVICES, APPROXIMATELY 29 HOURS PER WEEK * Additional services required to return to the preadmission environment? Yes * Can the patient safely return to the preadmission environment? Yes * Has this patient been hospitalized within the prior 30 days at any hospital? No Coverage Notice Reviewer: [id number] Socorro Sinclair Notice Issued Date-Time: 11/24/2018 16:35 Notice Type: IM Discharge Notice Notice Delivered To: Patient Relationship to Patient: Administrative Assistant Data Entry Name: Delivery Method: HAND - Hand Delivered Marialuisa Days: Prior Verbal Notification: Recipient Understood Notice: Yes Recipient Signature: Yes Med Rec Note Co-signed by Attending: Coverage Notice Comment: Last DP export: 11/27/18 6:37 a Patient Name: JUNIOR LATONYA Page [id number] at 1029 All edits/amendments must be made on the electronic document DICTATION DATE: 11/28/18 1028 SOFTWARE INTEGRATION DEVELOPER: JOSEPH 11/28/18 1028 RPT#: [id number] DC DATE: STATUS: ADM IN [facility] [address] [place] [address] END OF REPORT
--- NOTE | 2018-11-28 10:37 | MORECARE ---
CASE MANAGEMENT DISCHARGE SUMMARY PATIENT: JUNIOR Maryan HANKS UNIT: [id number] ADM DATE: 11/22/18 AGE: 87 : [birth year] SEX: M ROOM/BED: D.2103 AUTHOR: AUSTINDOC PHYSICIAN: REFERRING PHYSICIAN: DANGELO MEADOWS MD DATE OF SERVICE: 11/28/18 Discharge Plan Patient Name: JUNIOR LATONYA Facility: [facility]:[place] : 1930 Planned Disposition: Inpatient Rehab Anticipated Discharge Date: 11/28/18 Discharge Date: Expected LOS: 6 Initial Reviewer: [id number] Initial Review Date: 11/24/2018 Generated: 11/28/18 11:37 am Comments DCP- Discharge Planning Updated by [id number]: Tyree Sinclair on 11/28/18 9:[address] Patient Name: JUNIOR Maryan HANKS Encounter No: [id number] : 1930 Primary Insurance: MEDICARE A & B Anticipated DC Date: 11-28-2018 Planned Disposition: Inpatient Rehab External Planned Provider: [facility] INPATIENT REHAB DCP follow-up note: CM RECEIVED DISCHARGE ORDER, SPOKE TO PT AND SPOUSE IN ROOM, BOTH IN AGREEMENT WITH DISCHARGE TO [facility] TODAY, PT WANTS TO LEAVE SOON POSSIBLE. IMPORTANT MESSAGE FROM MEDICARE PROVIDED AND EXPLAINED. CM FAXED UPDATE AND DISCHARGE ALONG WITH TODAYS MAR TO [facility] AT [phone]. CM NOTIFIED AKSHAT AT [facility] WHO REPORTS THEY WILL ACCEPT PT TODAY FOR REHAB. NURSE REPORT TO BE CALLED TO [facility] AT [phone]. [facility] TO ARRANGE VAN TRANSPORTATION. Tyree Sinclair CASE REBEKAH DCP- Discharge Planning Updated by [id number]: Tyree Sinclair on 11/27/18 6:[address] Patient Name: JUNIOR Maryan HANKS Encounter No: [id number] : 1930 Primary Insurance: MEDICARE A & B Anticipated DC Date: 11-28-2018 Planned Disposition: Inpatient Rehab External Planned Provider:[facility] INPATIENT REHAB DCP follow-up note: VÍCTOR FAXED UPDATE TO [facility] AT [phone]. [facility] INPATIENT REHAB WILL ACCEPT FOR INPATIENT REHAB AT DISCHARGE. NURSE REPORT TO BE CALLED TO [facility] AT [phone], FAX DISCHARGE INFORMATION TO [facility] WITH CURRENT MAR AT [phone]. [facility] TO ARRANGE VAN TRANSPORTATION. Tyree Sinclair CASE MANAGEMENT DCP- Discharge Planning Updated by [id number]: Tyree Sinclair on 11/26/18 11:[address] Patient Name: JUNIOR Maryan HANKS Encounter No: [id number] : 1930 Primary Insurance: MEDICARE A & B Anticipated DC Date: 11-27-2018 Planned Disposition: Inpatient Rehab External Planned Provider: [facility] INPATIENT REHAB DCP follow-up note: LATE ENTRY FROM 11-24-18 AT APPROXIMATELY 1630 HOURS: CM RECEIVED ORDER FOR INPATIENT REHAB PRESCREENING. CM MET WITH PT AND SPOUSE IN ROOM TO DISCUSS DISCHARGE PLANNING AND NEEDS. JUNIOR Maryan HANKS provided verbal consent to discuss current and ongoing needs with/in the presence of: SPOUSE, JOSUE GOLDMAN. PT REPORTS LIVING AT HOME INDEPENDENTLY WITH SPOUSE. PT HAS BEDSIDE COMMODE, CPAP, HOSPITAL BED AND WALKER FROM [facility]. PT HAS NEW ELECTRIC WHEELCHAIR ORDERED AND IS WAITING DELIVERY. PT HAS PERSONAL CARE 5 HOURS THREE DAYS PER WEEK AND 7 HOURS 2 DAYS PER WEEK FROM [facility]. CM DISCUSSED AVAILABILITY OF HOME HEALTH, REHAB SERVICES AND MEDICAL EQUIPMENT. PT AND SPOUSE BOTH WANT PT TO HAVE REHAB AT [facility]. PT'S SPOUSE TO ACADEMIC INTERN FOR DISCHARGE HOME. IMPORTANT MESSAGE FROM MEDICARE PROVIDED AND EXPLAINED. ON 11-26-18, CM CALLED [facility] INPATIENT REHAB, SPOKE TO AKSHAT AT [phone], WHO ADVISED THEY WILL ACCEPT FOR REHAB AT DISCHARGE. ELIDA MONK NOTIFIED, ADVISED CM THAT GI NEEDS TO SEE PT. CM NOTIFIED ASKHAT AT [facility] AND PT IN ROOM. CM FAXED UPDATE AND TODAYS MAR TO [facility] AT [phone]. [facility] INPATIENT REHAB WILL ACCEPT FOR INPATIENT REHAB AT DISCHARGE. NURSE REPORT TO BE CALLED TO [facility] AT [phone], FAX DISCHARGE INFORMATION TO [facility] WITH CURRENT MAR AT [phone]. [facility] TO ARRANGE VAN TRANSPORTATION. MEGHNA Urban MANAGEMENT DCP- Discharge Planning Updated by [id number]: April Mullins on 11/25/18 8:[address] Patient Name: JUNIOR Maryan HANKS Admission Status: ER Accout number: [id number] Admission Date: 11-22-2018 : 1930 Admission Diagnosis: Attending: DANGELO MEADOWS Current LOS: 3 Anticipated DC Date: Planned Disposition: Primary Insurance: MEDICARE A & B Discharge Planning Comments: CM FAXED AND CALLED [facility] IN PT REHAB TODAY. WAITING ON DETERMINATION. PATIENT WOULD LIKE TO VISIT WITH PATIENT'S DOCTOR TODAY. Rigging Loft Mechanic: April Mullins DCPIA - Discharge Planning Initial Assessment Updated by [id number]: Tyree Sinclair on 11/26/18 11:56 am * Is the patient Alert and Oriented? Yes * How many steps to enter\exit or inside your home? RAMP * PCP DR. LUI * Pharmacy [facility] * Preadmission Environment Home with Family * ADLs Independent * Equipment Bedside Commode CPAP Hospital Bed Walker * Other Equipment ELECTRIC WHEELCHAIR HAS BEEN ORDERED PREVIOUS TO HOSPITAL STAY. [facility] - MEDICAL EQUIPMENT PROVIDER PREFERENCE * List name and contact numbers for known caregivers / representatives who currently or will assist patient after discharge: JOSUE HANKS, SPOUSE, * Verbal permission to speak to the caregivers and representatives has been obtained from the patient. Yes * Community resources currently utilized Private Duty Care * Please name any agencies selected above. [facility], PRIVATE AIDE SERVICES, APPROXIMATELY 29 HOURS PER WEEK * Additional services required to return to the preadmission environment? Yes * Can the patient safely return to the preadmission environment? Yes * Has this patient been hospitalized within the prior 30 days at any hospital? No Coverage Notice Reviewer: [id number] Socorro Sinclair Notice Issued Date-Time: 11/24/2018 16:35 Notice Type: IM Discharge Notice Notice Delivered To: Patient Relationship to Patient: Linotype Machinist Apprentice Name: Delivery Method: HAND - Hand Delivered Marialuisa Days: Prior Verbal Notification: Recipient Understood Notice: Yes Recipient Signature: Yes Med Rec Note Co-signed by Attending: Coverage Notice Comment: Reviewer: [id number] Sinclair Notice Issued Date-Time: 11/28/2018 10:10 Notice Type: IM Discharge Notice Notice Delivered To: Family Member Relationship to Patient: Spouse Linotype Machinist Apprentice Name: JOSUE HANKS Delivery Method: HAND - Hand Delivered Marialuisa Days: Prior Verbal Notification: Recipient Understood Notice: Yes Recipient Signature: Yes Med Rec Note Co-signed by Attending: Coverage Notice Comment: Last DP export: 11/28/18 9:29 a Patient Name: JUNIOR LATONYA Page [id number] at 1037 All edits/amendments must be made on the electronic document DICTATION DATE: 11/28/18 1036 FILENET ARCHITECT: JOSEPH 11/28/18 1036 RPT#: [id number] DC DATE: STATUS: ADM IN [facility] [address] [place] [address] END OF REPORT
--- NOTE | 2018-11-28 10:56 | NUR ---
RESP UL ON . AT BS. CALL LIGHT IN REACH. WILL MONITOR NEEDS.
--- NOTE | 2018-11-28 11:37 | MORECARE ---
CASE MANAGEMENT DISCHARGE SUMMARY PATIENT: JUNIOR Maryan HANKS UNIT: [id number] ADM DATE: 11/22/18 AGE: 87 : 31 SEX: M ROOM/BED: D.2103 AUTHOR: AUSTINDOC PHYSICIAN: REFERRING PHYSICIAN: DANGELO MEADOWS MD DATE OF SERVICE: 11/28/18 Discharge Plan Patient Name: JUNIOR LATONYA Facility: [facility]:[place] : 1930 Planned Disposition: Inpatient Rehab Anticipated Discharge Date: 11/28/18 Discharge Date: Expected LOS: 6 Initial Reviewer: [id number] Initial Review Date: 11/24/2018 Generated: 11/28/18 12:37 pm Comments DCP- Discharge Planning Updated by [id number]: Tyree Sinclair on 11/28/18 9:[address] Patient Name: JUNIOR Maryan HANKS Encounter No: [id number] : 1930 Primary Insurance: MEDICARE A & B Anticipated DC Date: 11-28-2018 Planned Disposition: Inpatient Rehab External Planned Provider: [facility] INPATIENT REHAB DCP follow-up note: CM RECEIVED DISCHARGE ORDER, SPOKE TO PT AND SPOUSE IN ROOM, BOTH IN AGREEMENT WITH DISCHARGE TO [facility] TODAY, PT WANTS TO LEAVE SOON POSSIBLE. IMPORTANT MESSAGE FROM MEDICARE PROVIDED AND EXPLAINED. CM FAXED UPDATE AND DISCHARGE ALONG WITH TODAYS MAR TO [facility] AT [phone]. CM NOTIFIED AKSHAT AT [facility] WHO REPORTS THEY WILL ACCEPT PT TODAY FOR REHAB. NURSE REPORT TO BE CALLED TO [facility] AT [phone]. [facility] TO ARRANGE VAN TRANSPORTATION. Tyree Sinclair CASE REBEKAH DCP- Discharge Planning Updated by [id number]: Tyree Sinclair on 11/27/18 6:[address] Patient Name: JUNIOR Maryan HANKS Encounter No: [id number] : 1930 Primary Insurance: MEDICARE A & B Anticipated DC Date: 11-28-2018 Planned Disposition: Inpatient Rehab External Planned Provider:[facility] INPATIENT REHAB DCP follow-up note: VÍCTOR FAXED UPDATE TO [facility] AT [phone]. [facility] INPATIENT REHAB WILL ACCEPT FOR INPATIENT REHAB AT DISCHARGE. NURSE REPORT TO BE CALLED TO [facility] AT [phone], FAX DISCHARGE INFORMATION TO [facility] WITH CURRENT MAR AT [phone]. [facility] TO ARRANGE VAN TRANSPORTATION. Tyree Sinclair CASE MANAGEMENT DCP- Discharge Planning Updated by [id number]: Tyree Sinclair on 11/26/18 11:[address] Patient Name: JUNIOR Maryan HANKS Encounter No: [id number] : 1930 Primary Insurance: MEDICARE A & B Anticipated DC Date: 11-27-2018 Planned Disposition: Inpatient Rehab External Planned Provider: [facility] INPATIENT REHAB DCP follow-up note: LATE ENTRY FROM 11-24-18 AT APPROXIMATELY 1630 HOURS: CM RECEIVED ORDER FOR INPATIENT REHAB PRESCREENING. CM MET WITH PT AND SPOUSE IN ROOM TO DISCUSS DISCHARGE PLANNING AND NEEDS. JUNIOR Maryan HANKS provided verbal consent to discuss current and ongoing needs with/in the presence of: SPOUSE, JOSUE GOLDMAN. PT REPORTS LIVING AT HOME INDEPENDENTLY WITH SPOUSE. PT HAS BEDSIDE COMMODE, CPAP, HOSPITAL BED AND WALKER FROM [facility]. PT HAS NEW ELECTRIC WHEELCHAIR ORDERED AND IS WAITING DELIVERY. PT HAS PERSONAL CARE 5 HOURS THREE DAYS PER WEEK AND 7 HOURS 2 DAYS PER WEEK FROM [facility]. CM DISCUSSED AVAILABILITY OF HOME HEALTH, REHAB SERVICES AND MEDICAL EQUIPMENT. PT AND SPOUSE BOTH WANT PT TO HAVE REHAB AT [facility]. PT'S SPOUSE TO GLASSWARE MAKER DEMONSTRATOR FOR DISCHARGE HOME. IMPORTANT MESSAGE FROM MEDICARE PROVIDED AND EXPLAINED. ON 11-26-18, CM CALLED [facility] INPATIENT REHAB, SPOKE TO AKSHAT AT [phone], WHO ADVISED THEY WILL ACCEPT FOR REHAB AT DISCHARGE. ELIDA MONK NOTIFIED, ADVISED CM THAT GI NEEDS TO SEE PT. CM NOTIFIED AKSHAT AT [facility] AND PT IN ROOM. CM FAXED UPDATE AND TODAYS MAR TO [facility] AT [phone]. [facility] INPATIENT REHAB WILL ACCEPT FOR INPATIENT REHAB AT DISCHARGE. NURSE REPORT TO BE CALLED TO [facility] AT [phone], FAX DISCHARGE INFORMATION TO [facility] WITH CURRENT MAR AT [phone]. [facility] TO ARRANGE VAN TRANSPORTATION. MEGHNA Urban MANAGEMENT DCP- Discharge Planning Updated by [id number]: April Mullins on 11/25/18 8:[address] Patient Name: JUNIOR Maryan HANKS Admission Status: ER Accout number: [id number] Admission Date: 11-22-2018 : 1930 Admission Diagnosis: Attending: DANGELO MEADOWS Current LOS: 3 Anticipated DC Date: Planned Disposition: Primary Insurance: MEDICARE A & B Discharge Planning Comments: CM FAXED AND CALLED [facility] IN PT REHAB TODAY. WAITING ON DETERMINATION. PATIENT WOULD LIKE TO VISIT WITH PATIENT'S DOCTOR TODAY. Blockers Skiver: April Mullins DCPIA - Discharge Planning Initial Assessment Updated by [id number]: Tyree Sinclair on 11/26/18 11:56 am * Is the patient Alert and Oriented? Yes * How many steps to enter\exit or inside your home? RAMP * PCP DR. LUI * Pharmacy [facility] * Preadmission Environment Home with Family * ADLs Independent * Equipment Bedside Commode CPAP Hospital Bed Walker * Other Equipment ELECTRIC WHEELCHAIR HAS BEEN ORDERED PREVIOUS TO HOSPITAL STAY. [facility] - MEDICAL EQUIPMENT PROVIDER PREFERENCE * List name and contact numbers for known caregivers / representatives who currently or will assist patient after discharge: JOSUE HANKS, SPOUSE, * Verbal permission to speak to the caregivers and representatives has been obtained from the patient. Yes * Community resources currently utilized Private Duty Care * Please name any agencies selected above. [facility], PRIVATE AIDE SERVICES, APPROXIMATELY 29 HOURS PER WEEK * Additional services required to return to the preadmission environment? Yes * Can the patient safely return to the preadmission environment? Yes * Has this patient been hospitalized within the prior 30 days at any hospital? No Coverage Notice Reviewer: [id number] Socorro Sinclair Notice Issued Date-Time: 11/24/2018 16:35 Notice Type: IM Discharge Notice Notice Delivered To: Patient Relationship to Patient: Duplication Specialist Name: Delivery Method: HAND - Hand Delivered Marialuisa Days: Prior Verbal Notification: Recipient Understood Notice: Yes Recipient Signature: Yes Med Rec Note Co-signed by Attending: Coverage Notice Comment: Reviewer: [id number] Sinclair Notice Issued Date-Time: 11/28/2018 10:10 Notice Type: IM Discharge Notice Notice Delivered To: Family Member Relationship to Patient: Spouse Duplication Specialist Name: JOSUE HANKS Delivery Method: HAND - Hand Delivered Marialuisa Days: Prior Verbal Notification: Recipient Understood Notice: Yes Recipient Signature: Yes Med Rec Note Co-signed by Attending: Coverage Notice Comment: Last DP export: 11/28/18 9:37 a Patient Name: JUNIOR LATONYA Page 26085 at 1137 All edits/amendments must be made on the electronic document DICTATION DATE: 11/28/181135 PUBLIC SERVICE DIRECTOR: JOSEPH 11/28/18 1136 RPT#: [id number] DC DATE: STATUS: ADM IN [facility] [address] [place] [address] END OF REPORT
--- NOTE | 2018-11-28 11:45 | MORECARE ---
CASE MANAGEMENT DISCHARGE SUMMARY PATIENT: JUNIOR Maryan HANKS UNIT: [id number] ADM DATE: 11/22/18 AGE: 87 : 31 SEX: M ROOM/BED: D.2103 AUTHOR: AUSTINDOC PHYSICIAN: REFERRING PHYSICIAN: DANGELO MEADOWS MD DATE OF SERVICE: 11/28/18 Discharge Plan Patient Name: JUNIOR LATONYA Facility: [facility]:[place] : 1930 Planned Disposition: Inpatient Rehab Anticipated Discharge Date: 11/28/18 Discharge Date: Expected LOS: 6 Initial Reviewer: [id number] Initial Review Date: 11/24/2018 Generated: 11/28/18 12:45 pm Comments DCP- Discharge Planning Updated by [id number]: Tyree Sinclair on 11/28/18 9:[address] Patient Name: JUNIOR Maryan HANKS Encounter No: [id number] : 1930 Primary Insurance: MEDICARE A & B Anticipated DC Date: 11-28-2018 Planned Disposition: Inpatient Rehab External Planned Provider: [facility] INPATIENT REHAB DCP follow-up note: CM RECEIVED DISCHARGE ORDER, SPOKE TO PT AND SPOUSE IN ROOM, BOTH IN AGREEMENT WITH DISCHARGE TO [facility] TODAY, PT WANTS TO LEAVE SOON POSSIBLE. IMPORTANT MESSAGE FROM MEDICARE PROVIDED AND EXPLAINED. CM FAXED UPDATE AND DISCHARGE ALONG WITH TODAYS MAR TO [facility] AT [phone]. CM NOTIFIED AKSHAT AT [facility] WHO REPORTS THEY WILL ACCEPT PT TODAY FOR REHAB. NURSE REPORT TO BE CALLED TO [facility] AT [phone]. [facility] TO ARRANGE VAN TRANSPORTATION. Tyree Sinclair CASE REBEKAH DCP- Discharge Planning Updated by [id number]: Tyree Sinclair on 11/27/18 6:[address] Patient Name: JUNIOR Maryan HANKS Encounter No: [id number] : 1930 Primary Insurance: MEDICARE A & B Anticipated DC Date: 11-28-2018 Planned Disposition: Inpatient Rehab External Planned Provider:[facility] INPATIENT REHAB DCP follow-up note: VÍCTOR FAXED UPDATE TO [facility] AT [phone]. [facility] INPATIENT REHAB WILL ACCEPT FOR INPATIENT REHAB AT DISCHARGE. NURSE REPORT TO BE CALLED TO [facility] AT [phone], FAX DISCHARGE INFORMATION TO [facility] WITH CURRENT MAR AT [phone]. [facility] TO ARRANGE VAN TRANSPORTATION. Tyree Sinclair CASE MANAGEMENT DCP- Discharge Planning Updated by [id number]: Tyree Sinclair on 11/26/18 11:[address] Patient Name: JUNIOR Maryan HANKS Encounter No: [id number] : 1930 Primary Insurance: MEDICARE A & B Anticipated DC Date: 11-27-2018 Planned Disposition: Inpatient Rehab External Planned Provider: [facility] INPATIENT REHAB DCP follow-up note: LATE ENTRY FROM 11-24-18 AT APPROXIMATELY 1630 HOURS: CM RECEIVED ORDER FOR INPATIENT REHAB PRESCREENING. CM MET WITH PT AND SPOUSE IN ROOM TO DISCUSS DISCHARGE PLANNING AND NEEDS. JUNIOR Maryan HANKS provided verbal consent to discuss current and ongoing needs with/in the presence of: SPOUSE, JOSUE GOLDMAN. PT REPORTS LIVING AT HOME INDEPENDENTLY WITH SPOUSE. PT HAS BEDSIDE COMMODE, CPAP, HOSPITAL BED AND WALKER FROM [facility]. PT HAS NEW ELECTRIC WHEELCHAIR ORDERED AND IS WAITING DELIVERY. PT HAS PERSONAL CARE 5 HOURS THREE DAYS PER WEEK AND 7 HOURS 2 DAYS PER WEEK FROM [facility]. CM DISCUSSED AVAILABILITY OF HOME HEALTH, REHAB SERVICES AND MEDICAL EQUIPMENT. PT AND SPOUSE BOTH WANT PT TO HAVE REHAB AT [facility]. PT'S SPOUSE TO WINDOW [employer]INTER FOR DISCHARGE HOME. IMPORTANT MESSAGE FROM MEDICARE PROVIDED AND EXPLAINED. ON 11-26-18, CM CALLED [facility] INPATIENT REHAB, SPOKE TO AKSHAT AT [phone], WHO ADVISED THEY WILL ACCEPT FOR REHAB AT DISCHARGE. ELIDA MONK NOTIFIED, ADVISED CM THAT GI NEEDS TO SEE PT. CM NOTIFIED AKSHAT AT [facility] AND PT IN ROOM. CM FAXED UPDATE AND TODAYS MAR TO [facility] AT [phone]. [facility] INPATIENT REHAB WILL ACCEPT FOR INPATIENT REHAB AT DISCHARGE. NURSE REPORT TO BE CALLED TO [facility] AT [phone], FAX DISCHARGE INFORMATION TO [facility] WITH CURRENT MAR AT [phone]. [facility] TO ARRANGE VAN TRANSPORTATION. MEGHNA Urban MANAGEMENT DCP- Discharge Planning Updated by [id number]: April Mullins on 11/25/18 8:[address] Patient Name: JUNIOR Maryan HANKS Admission Status: ER Accout number: [id number] Admission Date: 11-22-2018 : 1930 Admission Diagnosis: Attending: DANGELO MEADOWS Current LOS: 3 Anticipated DC Date: Planned Disposition: Primary Insurance: MEDICARE A & B Discharge Planning Comments: CM FAXED AND CALLED [facility] IN PT REHAB TODAY. WAITING ON DETERMINATION. PATIENT WOULD LIKE TO VISIT WITH PATIENT'S DOCTOR TODAY. Adult Basic Education Teacher: April Mullins DCPIA - Discharge Planning Initial Assessment Updated by [id number]: Tyree Sinclair on 11/26/18 11:56 am * Is the patient Alert and Oriented? Yes * How many steps to enter\exit or inside your home? RAMP * PCP DR. LUI * Pharmacy [facility] * Preadmission Environment Home with Family * ADLs Independent * Equipment Bedside Commode CPAP Hospital Bed Walker * Other Equipment ELECTRIC WHEELCHAIR HAS BEEN ORDERED PREVIOUS TO HOSPITAL STAY. [facility] - MEDICAL EQUIPMENT PROVIDER PREFERENCE * List name and contact numbers for known caregivers / representatives who currently or will assist patient after discharge: JOSUE HANKS, SPOUSE, * Verbal permission to speak to the caregivers and representatives has been obtained from the patient. Yes * Community resources currently utilized Private Duty Care * Please name any agencies selected above. [facility], PRIVATE AIDE SERVICES, APPROXIMATELY 29 HOURS PER WEEK * Additional services required to return to the preadmission environment? Yes * Can the patient safely return to the preadmission environment? Yes * Has this patient been hospitalized within the prior 30 days at any hospital? No External Providers External Provider: [facility] Next Contact Date: 11/28/2018 Service Request Date: Service Type: Resolution: Reviewer: Comments: Coverage Notice Reviewer: [id number] Socorro Sinclair Notice Issued Date-Time: 11/24/2018 16:35 Notice Type: IM Discharge Notice Notice Delivered To: Patient Relationship to Patient: Circuits Engineer Name: Delivery Method: HAND - Hand Delivered Marialuisa Days: Prior Verbal Notification: Recipient Understood Notice: Yes Recipient Signature: Yes Med Rec Note Co-signed by Attending: Coverage Notice Comment: Reviewer: [id number] Socorro Sinclair Notice Issued Date-Time: 11/28/2018 10:10 Notice Type: IM Discharge Notice Notice Delivered To: Family Member Relationship to Patient: Spouse Circuits Engineer Name: JOSUE HANKS Delivery Method: HAND - Hand Delivered Marialuisa Days: Prior Verbal Notification: Recipient Understood Notice: Yes Recipient Signature: Yes Med Rec Note Co-signed by Attending: Coverage Notice Comment: Last DP export: 11/28/18 10:37 a Patient Name: JUNIOR LATONYA Page 27495 at 1145 All edits/amendments must be made on the electronic document DICTATION DATE: 11/28/18 114 DRESSER TENDER: JOSEPH 11/28/18 1144 RPT#: [id number] DC DATE: STATUS: ADM IN [facility] [address] [place] [address] END OF REPORT
--- NOTE | 2018-11-28 12:15 | NUR ---
AM MEDICATIONS ADMINISTERED. AT BEDSIDE. RETIMED ABX PER ORDERS SO PT CAN BE DISCHARGED IN A TIMELY MANNER. PT DENIES ANY NEEDS. WILL CTM.
--- NOTE | 2018-11-28 15:02 | NUR ---
PT DISCHARGED TO [facility] VIA WHEELCHAIR AND [facility] TRANSPORTATION. PT SIGNED DISCHARGE PAPERWORK AND REMOVED ALL VALUABLES FROM THE ROOM. PIV REMOVED WITH CATHETER TIP FULLY INTACT.
== END 2018-11-28 15:04 | DRG 178 ==
LOC: D.ER 12:45 → D.EDHOLD 14:09 → D.M2 14:09
PROVIDERS: Emergency Medicine; Internal Medicine Gastroenterology; Internal Medicine Interventional Cardiology; Internal Medicine Nephrology; ADMIT Emergency Medicine
PROC: 0DJ08ZZ Inspection of Upper Intestinal Tract, Via Natural or Artificial Opening Endoscopic (ICD-10-PCS; principal; 2018-11-27 16:06)
DX: J69.0 Pneumonitis due to inhalation of food and vomit (principal); N17.9 Acute kidney failure, unspecified; B37.81 Candidal esophagitis; G20 Parkinson's disease; R53.81 Other malaise; M25.511 Pain in right shoulder; E87.5 Hyperkalemia; D50.9 Iron deficiency anemia, unspecified; J44.9 Chronic obstructive pulmonary disease, unspecified; I12.9 Hypertensive chronic kidney disease with stage 1 through stage 4 chronic kidney disease, or unspecified chronic kidney disease; N18.9 Chronic kidney disease, unspecified; G47.33 Obstructive sleep apnea (adult) (pediatric); Z66 Do not resuscitate; W19.XXXA Unspecified fall, initial encounter; K21.0 Gastro-esophageal reflux disease with esophagitis; K29.40 Chronic atrophic gastritis without bleeding